=== PATIENT | female | born 1940 | race African-American/Black ===

== ENCOUNTER 2020-02-22 00:38 | Inpatient (IN) ==
[2020-02-22 02:47] VITALS: BP 132/91
[2020-02-22 03:40] LABS: Amorphous Crystals,Urine Few /HPF (Few); Apearance,Urine Slightly Hazy (Clear); Bilirubin,Urine Negative (Negative); Blood, Urine Moderate mg/dL (Negative); Glucose,Urine (UA) Negative (Negative); Hyaline Casts,Urine 5 /LPF (0-3); Ketones,Urine 5 mg/dL (Negative); Mucus,Urine Occasional /LPF (Occasional); Nitrite,Urine Negative (Negative); Protein,Urine 100 MG/DL; RBC,Urine 3 /HPF (0-4); Squamous Epithelial Cell,Urine Occasional /HPF (0-10); Urine Color Yellow (Yellow); Urine Specific Gravity 1.016 (1.001-1.035); Urine Urobilinogen < 2.0 EU/DL (0.2-1.0)
[2020-02-22] MEDS ORDERED: ACETAMINOPHEN 325 MG TABLET PO PRN (04:28)
[2020-02-22] MEDS ORDERED: ONDANSETRON 4 MG/2 ML VIAL IV PRN (04:28)
[2020-02-22 05:07] LABS: Allen Test Positive; Pt O2 Delivery Device Ventilator
[2020-02-22 05:09] LABS: ABG Base Excess -5.4 MMOL/L (-2.5-2.5); ABG HCO3 19.9 MMOL/L (20-26); ABG Oxygen Saturation 94.5 % (95-100); ABG PCO2 62.8 MM HG (35-48); ABG PO2 95.5 MM HG (80-95); ABG TCO2 22.1 MMOL/L (23-27)
[2020-02-22 05:10] LABS: ABG PH 7.192 (7.35-7.45)
[2020-02-22] MEDS ORDERED: SODIUM BICARBONATE 50 MEQ/50 ML VIAL IV ONE (05:41)
[2020-02-22] MEDS ORDERED: cefTRIAXone 1,000 MG in SYRINGE 1 EACH IV SCH (06:00)
[2020-02-22] MEDS ORDERED: AZITHROMYCIN INJ 500 MG in SODIUM CHLORIDE 0.9% 250 ML IV SCH (06:00)
[2020-02-22 06:26] LABS: INR 1.1; PT Patient Result 12.2 SECS (9.8-11.9)
[2020-02-22 06:35] LABS: Alanine Aminotransferase 12 U/L (13-56); Albumin 2.7 G/DL (3.4-5.0); Alkaline Phosphatase 68 U/L (45-117); Aspartate Amino Transferase 37 U/L (0-37); Blood Urea Nitrogen 16 MG/DL (7-18); Calcium 9.1 MG/DL (8.5-10.1); Estimated Glom Filtration Rate 44 ML/MIN; Glucose 138 MG/DL (74-106); Osmolality,Calculated 292.6 MOS/KG (273-304); Total Protein 7.7 G/DL (6.4-8.3)
[2020-02-22 06:47] LABS: Basophils % 0.3 % (0.0-0.8); Eosinophils % 0.1 % (0.00-10.9); Hematocrit 37.3 VOL% (35.7-47.0); Immature Granulocytes % 2.9 %; Lymphocytes # 0.7 10*3/uL (1.4-4.0); Mean Corpuscular HGB Conc 29.5 GM/DL (32-36); Mean Corpuscular Volume 79.5 FL (87-102); Mean Platelet Volume 10.2 FL (9.6-12.0); Monocytes % 9.4 % (1.7-12.7); NRBC # 0.04 10*3/uL; Neutrophils % 82.3 % (38.7-73.9); Platelet Count 288 T/CUMM (130-400); Red Blood Count 4.69 MC/CUMM (3.8-5.5); Red Cell Distribution Width 17.2 % (9.3-17.3)
[2020-02-22 07:09] LABS: Ferritin 184.4 ng/ml (8-252)
[2020-02-22] MEDS ORDERED: NOREPINEPHRINE 8 MG in SODIUM CHLORIDE 0.9% 242 ML IV PRN (07:46)
[2020-02-22] MEDS ORDERED: NOREPINEPHRINE 4 MG/4 ML VIAL IV ONE (07:55)
[2020-02-22] MEDS ORDERED: ENOXAPARIN 40 MG/0.4 ML SYRINGE SUBCUT SCH (09:00)
[2020-02-22] MEDS ORDERED: FAMOTIDINE 20 MG TABLET NG SCH (09:00)
[2020-02-22] MEDS ORDERED: EPINEPHrine 1 MG/10 ML SYRINGE IV ONE (09:09)
[2020-02-24] MEDS ORDERED: AZITHROMYCIN 250 MG TABLET PO SCH (09:00)
== END 2020-02-22 08:05 | disposition expired | DRG 208 ==
LOC: N.CC 02:24
PROVIDERS: ADMIT Internal Medicine; ATTEND Internal Medicine